=== PATIENT | female | born 1965 | race Caucasian/White ===

== ENCOUNTER 2018-07-20 08:36 | Emergency (ER) | payer OTHER ==
[2018-07-20] MEDS ORDERED: NORMAL SALINE 1000 ML 1,000 ML IV ONE (09:25)
[2018-07-20 09:49] LABS: ABSOLUTE LYMPHOCYTES (AUTO) 1.1 10^3/uL (0.5-4.7); ABSOLUTE MONOCYTES (AUTO) 0.7 10^3/uL (0.1-1.4); ABSOLUTE NEUT (AUTO) 7.5 10^3/uL (1.7-8.2); BASOPHILS % (AUTO) 0.4 % (0-2); EOSINOPHILS % (AUTO) 0.5 % (0-6); HEMATOCRIT 40.9 % (36.0-47.0); HEMOGLOBIN 14.1 g/dL (12.0-15.5); LYMPHOCYTES % (AUTO) 11.8 % (13-45); MEAN CORPUSCULAR HEMOGLOBIN 29.2 pg (27.0-33.4); MEAN CORPUSCULAR HGB CONC 34.4 g/dL (32.0-36.0); MEAN CORPUSCULAR VOLUME 85 fl (80-97); MONOCYTES % (AUTO) 7.3 % (3-13); PLATELET COUNT 269 10^3/uL (150-450); RED BLOOD COUNT 4.81 10^6/uL (3.72-5.28); RED CELL DISTRIBUTION WIDTH 13.8 % (11.5-14.0); TOTAL CELLS COUNTED % (AUTO) 100 %; WHITE BLOOD COUNT 9.3 10^3/uL (4.0-10.5)
[2018-07-20 10:08] LABS: ALANINE AMINOTRANSFERASE 29 U/L (9-52); ALBUMIN 4.6 g/dL (3.5-5.0); ALKALINE PHOSPHATASE 67 U/L (38-126); ANION GAP 16 (5-19); ASPARTATE AMINO TRANSFERASE 26 U/L (14-36); BILIRUBIN,DIRECT 0.4 mg/dL (0.0-0.4); BILIRUBIN,TOTAL 0.8 mg/dL (0.2-1.3); BLOOD UREA NITROGEN 8 mg/dL (7-20); CALCIUM 9.8 mg/dL (8.4-10.2); CARBON DIOXIDE 27 mmol/L (22-30); CHLORIDE 93 mmol/L (98-107); GLUCOSE 144 mg/dL (75-110); SODIUM 136.4 mmol/L (137-145); TOTAL PROTEIN 7.5 g/dL (6.3-8.2)
[2018-07-20] MEDS ORDERED: MAGNESIUM SULFATE/D5W 1 GM/100 ML RTUPB IV ONE (10:24)
[2018-07-20] MEDS ORDERED: POTASSI CL 20 MEQ/50 ML RIDER 20 MEQ/50 ML RTUPB IV SCH (10:30)
[2018-07-20] MEDS ORDERED: POTASSI CL 20 MEQ/50 ML RIDER 20 MEQ/50 ML RTUPB IV ONE (10:33)
[2018-07-20] MEDS ORDERED: POTASSIUM CHLORIDE 20 MEQ/15 ML UDCUP PO ONE (10:33)
[2018-07-20] MEDS ORDERED: FAMOTIDINE INJ/PF 20 MG/2 ML SDV IV ONE (10:33)
--- NOTE | 2018-07-20 12:50 | Progress Note ---
Provider Note Provider Note: Patient was scheduled for an EGD and colonoscopy today. she went to ED with concerns about her potassium. I was made aware that patient was in ED by Dr Dodge who is in charge of Anesthesia today. I was told that her potassium was low, Dr Dodge stated that patient will be having an EKG and that he is checking her labs and that it would be replaced. A little after that, Dr Dodge informed me that patient had expressed the fact that she did not want to proceed with her procedures due to her significant anxiety; the decision was then made to cancel her procedure.. will see the patient as an outpatient, but I do suspect that this same scenario will be repeated at the next attempt.
--- NOTE | 2018-07-20 13:24 | ER Document Report ---
ED General - General Chief Complaint: Anxiety Stated Complaint: ANXIETY Time Seen by Provider: 07/20/18 09:34 Primary Care Provider: DALE EDWARD [Primary Care Provider] - Follow up as needed TRAVEL OUTSIDE OF THE [place] IN LAST 30 DAYS: No - HPI Patient complains to provider of: Anxiety cramping Notes: Patient was scheduled for a colonoscopy EGD earlier this morning patient states she has been performed the prep however woke up this morning very anxious also having some cramping in her hands. Patient states she had a small amount of vomiting early this morning patient states she did complete the entire prep. Patient otherwise is resting comfortably upon my evaluation. Patient states she was recently started on potassium supplements as that her doctor performed lab work showing a potassium of 2. Patient states she states 10 mEq a day however has not taken those in the last 3 days. Patient was to be no obvious distress - Related Data Allergies/Adverse Reactions: aspirin Allergy (Severe, Verified 07/20/18 08:40) Hemorrhage montelukast [From Singulair] Allergy (Severe, Verified 07/20/18 08:40) valsartan [From Diovan] Allergy (Severe, Verified 07/20/18 08:40) levofloxacin [From Levaquin] Allergy (Intermediate, Verified 07/20/18 08:40) VOMITING paroxetine [From Paxil] Allergy (Intermediate, Verified 07/20/18 08:40) Hallucinations COSTUME JEWELRY METAL Allergy (Uncoded 07/20/18 08:40) Past Medical History - Social History Smoking Status: Never Smoker Family History: Reviewed & Not Pertinent Patient has suicidal ideation: No Patient has homicidal ideation: No - Past Medical History Cardiac Medical History: Reports: Hx Hypertension Denies: Hx Coronary Artery Disease, Hx Heart Attack Pulmonary Medical History: Reports: Hx Asthma - ALLERGEN Denies: Hx Bronchitis, Hx COPD, Hx Pneumonia Neurological Medical History: Denies: Hx Cerebrovascular Accident, Hx Seizures Renal/ Medical History: Denies: Hx Peritoneal Dialysis Musculoskeletal Medical History: Denies Hx Arthritis - Immunizations Hx Diphtheria, Pertussis, Tetanus Vaccination: Yes - NOT UP TO DATE Review of Systems - Review of Systems Constitutional: No symptoms reported EENT: No symptoms reported Cardiovascular: No symptoms reported Respiratory: No symptoms reported Gastrointestinal: No symptoms reported Genitourinary: No symptoms reported Female Genitourinary: No symptoms reported Musculoskeletal: No symptoms reported Skin: No symptoms reported Hematologic/Lymphatic: No symptoms reported Neurological/Psychological: Anxiety, Other - Cramping -: Yes All other systems reviewed and negative Physical Exam - Vital signs Vitals: Temp Pulse Resp BP Pulse Ox 97.7 F 158 H 16 140/72 H 100 07/20/18 08:43 07/20/18 08:43 07/20/18 08:43 07/20/18 08:43 07/20/18 08:43 Interpretation: Normal - General General appearance: Appears well, Alert - HEENT Head: Normocephalic, Atraumatic Eyes: Normal Pupils: PERRL - Respiratory Respiratory status: No respiratory distress Chest status: Nontender Breath sounds: Normal Chest palpation: Normal - Cardiovascular Rhythm: Regular Heart sounds: Normal auscultation Murmur: No - Abdominal Inspection: Normal Distension: No distension Bowel sounds: Normal Tenderness: Nontender Organomegaly: No organomegaly - Back Back: Normal, Nontender - Extremities General upper extremity: Normal inspection, Nontender, Normal color, Normal ROM, Normal temperature General lower extremity: Normal inspection, Nontender, Normal color, Normal ROM, Normal temperature, Normal weight bearing. No: Luis's sign - Neurological Neuro grossly intact: Yes Cognition: Normal Orientation: AAOx4 Wisdom Coma Scale Eye Opening: Spontaneous Wisdom Coma Scale Verbal: Oriented Hazel Coma Scale Motor: Obeys Commands Hazel Coma Scale Total: 15 Speech: Normal Motor strength normal: LUE, RUE, LLE, RLE Sensory: Normal - Psychological Associated symptoms: Normal affect, Normal mood - Skin Skin Temperature: Warm Skin Moisture: Dry Skin Color: Normal Course - Re-evaluation Re-evalutation: 07/20/18 15:24 Laboratory studies show a low potassium of 3 and a magnesium of 1.4. Patient was given oral potassium and intravenous magnesium as that we were notified by the GI and anesthesia team the patient would not be undergoing her EGD or colonoscopy today because these a little abnormalities. At the replacement patient feeling a symptomatic patient was encouraged to continue her home medications we will add mag to her medication regiment for repletion patient discharged home - Vital Signs Vital signs: Temp Pulse Resp BP Pulse Ox 98.2 F 76 16 136/74 H 100 07/20/18 13:37 07/20/18 13:37 07/20/18 13:37 07/20/18 13:37 07/20/18 13:37 - Laboratory Result Diagrams: 07/20/18 09:28 07/20/18 09:28 Laboratory results interpreted by me: 07/20/18 07/20/18 07/20/18 09:28 09:28 09:28 Seg Neutrophils % 80.0 H Lymphocytes % 11.8 L Sodium 136.4 L Potassium 3.0 L* Chloride 93 L Est GFR (Non-Af Amer) 58 L Glucose 144 H Magnesium 1.2 L* Discharge - Discharge Clinical Impression: Hypokalemia, Hypomagnesemia Condition: Good Disposition: HOME, SELF-CARE Instructions: Anxiety ([facility]), Hypokalemia ([facility]) Additional Instructions: Your evaluation today shows low potassium and low magnesium exam tabs as prescribed please continue with your potassium replacement tablets as previous prescribed by your physician follow-up with your GI specialist return to the ER symptoms worsen. Prescriptions: Magnesium Oxide [Mag-Ox 400 mg Tablet] 400 mg PO DAILY #30 tablet Forms: Parent Work Note, Return to School Referrals: DALE EDWARD [Primary Care Provider] - Follow up as needed
[2018-07-20 13:39] VITALS: BP 136/74
--- NOTE | 2018-07-20 22:55 | EKG REPORT ---
SEVERITY:- BORDERLINE ECG - SINUS RHYTHM BORDERLINE LEFT AXIS DEVIATION BORDERLINE T ABNORMALITIES, ANTERIOR LEADS : Confirmed by: Rosalee Thompson MD 20-Jul-2018 22:54:57
== END 2018-07-20 13:39 | disposition home or self-care (01) ==
LOC: ER 08:36
DX: E87.6 Hypokalemia (principal); E83.42 Hypomagnesemia; F41.9 Anxiety disorder, unspecified; I10 Essential (primary) hypertension; J45.909 Unspecified asthma, uncomplicated
CPT/HCPCS: 93005; 36415; 83735; 85025; 80053; 93010; J3475; J3480; J7030; S0028; 96361; 96365; 96375; 99284

== ENCOUNTER 2018-08-26 21:07 | Emergency (ER) | payer OTHER ==
[2018-08-26 21:32] LABS: APPEARANCE,URINE CLEAR; BILIRUBIN,URINE NEGATIVE (NEGATIVE); COLOR,URINE COLORLESS; GLUCOSE, URINE NEGATIVE (NEGATIVE); KETONES,URINE NEGATIVE (NEGATIVE); LEUKOCYTE ESTERASE,URINE NEGATIVE (NEGATIVE); NITRITE,URINE NEGATIVE (NEGATIVE); PROTEIN,URINE NEGATIVE (NEGATIVE); URINE SPECIFIC GRAVITY 1.003; UROBILINOGEN,URINE NEGATIVE mg/dL (<2.0)
[2018-08-26 22:52] LABS: ANION GAP 9 (5-19); BLOOD UREA NITROGEN 13 mg/dL (7-20); CALCIUM 9.9 mg/dL (8.4-10.2); CARBON DIOXIDE 28 mmol/L (22-30); CHLORIDE 106 mmol/L (98-107); GLUCOSE 108 mg/dL (75-110); POTASSIUM 3.8 mmol/L (3.6-5.0); SODIUM 142.9 mmol/L (137-145)
--- NOTE | 2018-08-27 00:42 | ER Document Report ---
ED General - General Chief Complaint: Other Stated Complaint: ABNORMAL LABS Time Seen by Provider: 08/26/18 21:59 Primary Care Provider: BLAS NOLASCO NP [Primary Care Provider] - Follow up in 3-5 days Cannot obtain history due to: Other - Very poor historian Notes: Patient is a 53-year-old female with a past medical history of essential hypertension, presents with a multitude of complaints. It is difficult to ascertain what exactly is bringing the patient to the emergency department rajinder salomon. As I sit in the room the patient continues to add additional complaints that were not initially presented to nursing staff. Initially the patient was complaining to me primarily of urinating frequently throughout the day today. She denies any associated dysuria, abdominal pain, flank pain, hematuria or burning. She states only that she is concerned that she is peeing so often. Nothing seems to improve or worsen the symptom. Denies anything similar in the past. The patient then speaks at length about her history of low potassium and low magnesium earlier this month. For several minutes thereafter she tells me about the various types of potassium and magnesium that she has tried taking in conjunction with her primary care doctor. She then tells me that she is concerned about bilateral lower extremity edema but then notes that this has also gone away. She also tells me that she has felt fatigued, has had some intermittent headaches, states that she is very concerned about her potassium and magnesium levels. She also relates that she has a history of significant anxiety, has a long-standing history of multiple medicine allergies, tells me that she drove to the hospital several weeks ago and sat in the parking lot for an hour after taking her first dose of buspirone "because I was sure I can have an allergic reaction but I guess I did not". Patient is unable to identify exactly what made her come to the emergency department [place]. She has not discussed her concerns with her primary care doctor today. TRAVEL OUTSIDE OF THE [place] IN LAST 30 DAYS: No - Related Data Allergies/Adverse Reactions: aspirin Allergy (Severe, Verified 07/20/18 08:40) Hemorrhage montelukast [From Singulair] Allergy (Severe, Verified 07/20/18 08:40) valsartan [From Diovan] Allergy (Severe, Verified 07/20/18 08:40) levofloxacin [From Levaquin] Allergy (Intermediate, Verified 07/20/18 08:40) VOMITING paroxetine [From Paxil] Allergy (Intermediate, Verified 07/20/18 08:40) Hallucinations COSTUME JEWELRY METAL Allergy (Uncoded 07/20/18 08:40) Past Medical History - General Information source: Patient - Social History Smoking Status: Never Smoker Frequency of alcohol use: None Drug Abuse: None Lives with: Spouse/Significant other Family History: Reviewed & Not Pertinent Patient has suicidal ideation: No Patient has homicidal ideation: No - Past Medical History Cardiac Medical History: Reports: Hx Hypertension Denies: Hx Coronary Artery Disease, Hx Heart Attack Pulmonary Medical History: Reports: Hx Asthma - ALLERGEN Denies: Hx Bronchitis, Hx COPD, Hx Pneumonia Neurological Medical History: Denies: Hx Cerebrovascular Accident, Hx Seizures Renal/ Medical History: Denies: Hx Peritoneal Dialysis Musculoskeletal Medical History: Denies Hx Arthritis - Immunizations Hx Diphtheria, Pertussis, Tetanus Vaccination: Yes - NOT UP TO DATE Review of Systems - Review of Systems Notes: Constitutional: Negative for fever. HENT: Negative for sore throat. Eyes: Negative for visual changes. Cardiovascular: Negative for chest pain. Respiratory: Negative for shortness of breath. Gastrointestinal: Negative for abdominal pain, vomiting or diarrhea. Genitourinary: Negative for dysuria. Musculoskeletal: Positive for leg swelling Skin: Negative for rash. Neurological: Negative for headaches, weakness or numbness. 10 point ROS negative except as marked above and in HPI. Physical Exam - Vital signs Vitals: Temp Pulse Resp BP Pulse Ox 97.7 F 69 16 188/97 H 99 08/26/18 21:29 08/26/18 21:29 08/26/18 21:29 08/26/18 21:29 08/26/18 21:29 Interpretation: Hypertensive Notes: PHYSICAL EXAMINATION: GENERAL: Well-appearing, well-nourished and in no acute distress. HEAD: Atraumatic, normocephalic. EYES: Pupils equal round and reactive to light, extraocular movements intact, sclera anicteric, conjunctiva are normal. ENT: nares patent, oropharynx clear without exudates. Moist mucous membranes. NECK: Normal range of motion, supple without lymphadenopathy LUNGS: Breath sounds clear to auscultation bilaterally and equal. No wheezes rales or rhonchi. HEART: Regular rate and rhythm without murmurs ABDOMEN: Soft, nontender, normoactive bowel sounds. No guarding, no rebound. No masses appreciated. EXTREMITIES: Normal range of motion, no pitting or edema. No cyanosis. NEUROLOGICAL: No focal neurological deficits. Moves all extremities spontaneous ly and on command. PSYCH: Normal mood, normal affect. SKIN: Warm, Dry, normal turgor, no rashes or lesions noted. Course - Re-evaluation Re-evalutation: 08/27/18 00:42 Patient presents with multiple vague complaints that did not appear to be concerning for any acute life-threatening pathology. Vitals are within normal limits at triage and at time of discharge. Physical examination is unremarkable. Patient has tolerated oral intake without difficulty. Patient was not noted to be in distress at any point during their ER visit. At this time, based on the reassuring evaluation, I do not suspect an acute RI, pulmonary embolus, aortic dissection, acute intra-abdominal pathology, stroke, or sepsis.Will discharge with return precautions and follow-up recommendations. Verbal discharge instructions given a the bedside and opportunity for questions given. Medication warnings reviewed. Patient is in agreement with this plan and has verbalized understanding of return precautions and the need for primary care follow-up in the next 24-72 hours. - Vital Signs Vital signs: Temp Pulse Resp BP Pulse Ox 98.7 F 68 19 171/92 H 97 08/27/18 00:47 08/26/18 22:00 08/27/18 00:09 08/27/18 00:09 08/27/18 00:09 - Laboratory Result Diagrams: 08/26/18 22:25 Discharge - Discharge Clinical Impression: Essential hypertension, Multiple complaints Condition: Stable Disposition: HOME, SELF-CARE Additional Instructions: Please return to the emergency room immediately if you experience any concerning symptoms including high fevers, severe headache, chest pain, difficulty breathing, abdominal pain, slurred speech, numbness or weakness in your arms or legs, or any other symptom that concerns you. Referrals: BLAS NOLASCO NP [Primary Care Provider] - Follow up in 3-5 days
[2018-08-27 00:47] VITALS: BP 171/92
== END 2018-08-27 00:47 | disposition home or self-care (01) ==
LOC: ER 21:07
DX: R35.0 Frequency of micturition (principal); I10 Essential (primary) hypertension; R53.83 Other fatigue; R51 Headache; M79.89 Other specified soft tissue disorders; J45.909 Unspecified asthma, uncomplicated; Z88.6 Allergy status to analgesic agent; Z88.8 Allergy status to other drugs, medicaments and biological substances; Z88.1 Allergy status to other antibiotic agents; Z91.048 Other nonmedicinal substance allergy status
CPT/HCPCS: 36415; 80048; 81001; 83735; 99283

== ENCOUNTER 2018-09-01 01:05 | Emergency (ER) | payer OTHER ==
--- NOTE | 2018-09-01 03:39 | ER Document Report ---
ED General - General Chief Complaint: Blood Pressure Problem Stated Complaint: BLOOD PRESSURE PROBLEMS Time Seen by Provider: 09/01/18 02:50 Primary Care Provider: BLAS NOLASCO NP [Primary Care Provider] - Follow up as needed Notes: Patient is a 53-year old female with a past medical history of essential hypertension, anxiety, pressure. Patient states that she brought a blood pressure cuff today, checked her blood pressure every 2 hours for the past 10 hours, found her readings to be high and became concerned coming to the emergency department. Denies any associated symptoms. Has been taking her blood pressure medications as prescribed. Nothing seemed to improve or worsen her blood pressure although she notes more she took a higher got. Does note associated anxiety. Denies any chest pain, shortness of breath or palpitations. Has a long-standing history of hypertension. TRAVEL OUTSIDE OF THE [place] IN LAST 30 DAYS: No - Related Data Allergies/Adverse Reactions: aspirin Allergy (Severe, Verified 07/20/18 08:40) Hemorrhage montelukast [From Singulair] Allergy (Severe, Verified 07/20/18 08:40) valsartan [From Diovan] Allergy (Severe, Verified 07/20/18 08:40) levofloxacin [From Levaquin] Allergy (Intermediate, Verified 07/20/18 08:40) VOMITING paroxetine [From Paxil] Allergy (Intermediate, Verified 07/20/18 08:40) Hallucinations COSTUME JEWELRY METAL Allergy (Uncoded 07/20/18 08:40) Past Medical History - General Information source: Patient - Social History Smoking Status: Never Smoker Frequency of alcohol use: None Drug Abuse: None Lives with: Spouse/Significant other Family History: Reviewed & Not Pertinent - Past Medical History Cardiac Medical History: Reports: Hx Hypertension Denies: Hx Coronary Artery Disease, Hx Heart Attack Pulmonary Medical History: Reports: Hx Asthma - ALLERGEN Denies: Hx Bronchitis, Hx COPD, Hx Pneumonia Neurological Medical History: Denies: Hx Cerebrovascular Accident, Hx Seizures Renal/ Medical History: Denies: Hx Peritoneal Dialysis Musculoskeletal Medical History: Denies Hx Arthritis - Immunizations Hx Diphtheria, Pertussis, Tetanus Vaccination: Yes - NOT UP TO DATE Review of Systems - Review of Systems Notes: Constitutional: Negative for fever. HENT: Negative for sore throat. Eyes: Negative for visual changes. Cardiovascular: Negative for chest pain. Respiratory: Negative for shortness of breath. Gastrointestinal: Negative for abdominal pain, vomiting or diarrhea. Genitourinary: Negative for dysuria. Musculoskeletal: Negative for back pain. Skin: Negative for rash. Neurological: Negative for headaches, weakness or numbness. 10 point ROS negative except as marked above and in HPI. Physical Exam - Vital signs Vitals: Temp Pulse Resp BP Pulse Ox 98.2 F 73 18 159/94 H 99 09/01/18 01:18 09/01/18 01:18 09/01/18 01:18 09/01/18 01:18 09/01/18 01:18 Interpretation: Normal Notes: PHYSICAL EXAMINATION: GENERAL: Well-appearing, well-nourished and in no acute distress. HEAD: Atraumatic, normocephalic. EYES: Pupils equal round and reactive to light, extraocular movements intact, sclera anicteric, conjunctiva are normal. ENT: nares patent, oropharynx clear without exudates. Moist mucous membranes. NECK: Normal range of motion, supple without lymphadenopathy LUNGS: Breath sounds clear to auscultation bilaterally and equal. No wheezes rales or rhonchi. HEART: Regular rate and rhythm without murmurs ABDOMEN: Soft, nontender, normoactive bowel sounds. No guarding, no rebound. No masses appreciated. EXTREMITIES: Normal range of motion, no pitting or edema. No cyanosis. NEUROLOGICAL: No focal neurological deficits. Moves all extremities spontaneously and on command. PSYCH: Normal mood, normal affect. SKIN: Warm, Dry, normal turgor, no rashes or lesions noted. Course - Re-evaluation Re-evalutation: 09/01/18 03:30 Presentation of asymptomatic hypertension. Patient denies any symptoms concerning for SAH, dissection, AR, or encephalopaty. Alert, oriented, and denies any symptoms at time of assessment. Normal neuro exam. Per ACEP policy guidelines, will therefore not obtain any labs or EKG at this time and will not initiate new BP treatment. I have discussed critical importance of follow up with PCP within 1 week and increased risk of devastating stroke, heart attack, respiratory distress, and other life threatening complications if blood pressure is not reduced appropriately. Diet and exercise habits also discussed. Patient will be discharged with return precautions and follow-up recommendations. - Vital Signs Vital signs: Temp Pulse Resp BP Pulse Ox 98.2 F 66 18 188/89 H 99 09/01/18 01:18 09/01/18 02:37 09/01/18 01:18 09/01/18 02:37 09/01/18 01:18 Discharge - Discharge Clinical Impression: Essential hypertension Condition: Good Disposition: HOME, SELF-CARE Additional Instructions: You were seen today for blood pressure that was high. This is a long-term risk factor for multiple medical problems including heart attack and stroke. However, the blood pressure in of itself will not cause you to have an acute stroke or heart attack over the course of just several days or weeks. You need to have a gradual reduction of your blood pressure back to normal levels over the next several months in conjunction with your primary care physician. Return if you develop headache, weakness, numbness, chest pain, pass out, or have any other symptoms that are concerning to you. Referrals: BLAS NOLASCO NP [Primary Care Provider] - Follow up as needed
[2018-09-01 04:13] VITALS: BP 154/90
== END 2018-09-01 04:14 | disposition home or self-care (01) ==
LOC: ER 01:05
DX: I10 Essential (primary) hypertension (principal); Z79.899 Other long term (current) drug therapy; F41.9 Anxiety disorder, unspecified; J45.909 Unspecified asthma, uncomplicated; Z88.6 Allergy status to analgesic agent; Z88.8 Allergy status to other drugs, medicaments and biological substances; Z88.1 Allergy status to other antibiotic agents; Z91.048 Other nonmedicinal substance allergy status
CPT/HCPCS: 99283

== ENCOUNTER → 2018-09-20 | Outpatient (CLI) | payer OTHER ==
[2018-09-20 09:57] LABS: CHOLESTEROL 177.52 mg/dL (0-200); TRIGLYCERIDES 151 mg/dL (<150)
[2018-09-20 10:08] LABS: DIRECT LDL 78 mg/dL (<100)
[2018-09-20 10:11] LABS: VLDL CHOLESTEROL 30.2 mg/dL (10-31)
== END ==
LOC: OD 08:04
PROVIDERS: ATTEND Physician Assistant
DX: Z13.6 Encounter for screening for cardiovascular disorders (principal)
CPT/HCPCS: 36415; 80061

== ENCOUNTER → 2018-10-04 | Outpatient (CLI) | payer OTHER | LOC: OD 11:58 | PROVIDERS: ATTEND Otolaryngology | DX: J30.9 Allergic rhinitis, unspecified (principal) | CPT/HCPCS: 36415; 82785; 86003 ==

== ENCOUNTER → 2019-04-16 | Outpatient (CLI) | payer OTHER ==
--- NOTE | 2019-04-17 07:25 | WOMENS IMAGING REPORT ---
EXAM DESCRIPTION: BILAT SCREENING MAMMO W/CAD COMPLETED DATE/TIME: 04/16/2019 3:21 pm REASON FOR STUDY: Z12.31 SCREENING MAMMO Z12.31 ENCNTR SCREEN MAMMOGRAM FOR MALIGNANT NEOPLASM OF B RE COMPARISON: None. EXAM PARAMETERS: Standard craniocaudal and mediolateral oblique views of each breast recorded using digital acquisition. Read with the assistance of CAD. .[facility] - [employer] Director Version 9.2 LIMITATIONS: None. FINDINGS: No suspicious masses, suspicious calcifications or architectural distortion. No areas of c oncern. IMPRESSION: Negative MAMMOGRAM. BIRADS 1 BREAST DENSITY: a. The breasts are almost entirely fatty. BIRAD: ASSESSMENT: 1 NEGATIVE RECOMMENDATION: ROUTINE SCREENING Please continue yearly bilateral screening mammography/tomosynthesis in March 2020 COMMENT: The patient has been notified of the results by letter per MQSA requirements. Additional no tification policies are in place for contacting patient with suspicious or incomplete findings. Quality ID #225: The [employer] recommends an annual screening mammogram for women aged 40 years or over. This facility utilizes a reminder system to ensure that all patients receive reminder letters, and/or direct phone calls for appointments. This includes reminders for routine scr eening mammograms, diagnostic mammograms, or other Breast Imaging Interventions when appropriate. Th is patient will be placed in the appropriate reminder system. TECHNICAL DOCUMENTATION: FINDING NUMBER: (1) ASSESSMENT: (1) JOB ID: [id number] [employer]- All Rights Reserved Reading location - IP/workstation name: [email or web address]
== END ==
LOC: WI 14:45
PROVIDERS: ATTEND Physician Assistant
DX: Z12.31 Encounter for screening mammogram for malignant neoplasm of breast (principal)
CPT/HCPCS: 77067

== ENCOUNTER → 2020-06-24 | Outpatient (CLI) | payer OTHER ==
--- NOTE | 2020-06-24 15:08 | WOMENS IMAGING REPORT ---
EXAM DESCRIPTION: 3D SCREENING MAMMO BILAT IMAGES COMPLETED DATE/TIME: 06/24/2020 2:16 pm REASON FOR STUDY: ROUTINE SCREENING MAMMOGRAM Z12.31 Z12.31 ENCNTR SCREEN MAMMOGRAM FOR MALIGNANT N EOPLASM OF SERGE COMPARISON: 2019 EXAM PARAMETERS: Views: Standard craniocaudal and mediolateral oblique views of each breast recorded using digital acquisition and breast tomosynthesis. Read with the assistance of CAD. .[facility] - [employer] Version 9.2 LIMITATIONS: None. FINDINGS: No suspicious masses, suspicious calcifications or architectural distortion. No areas of c oncern. IMPRESSION: NEGATIVE MAMMOGRAM. BIRADS 1. BREAST DENSITY: b. There are scattered areas of fibroglandular density. BIRAD: ASSESSMENT: 1 NEGATIVE RECOMMENDATION: ROUTINE SCREENING COMMENT: The patient has been notified of the results by letter per MQSA requirements. Additional no tification policies are in place for contacting patient with suspicious or incomplete findings. Quality ID #225: The [employer] recommends an annual screening mammogram for women aged 40 years or over. This facility utilizes a reminder system to ensure that all patients receive reminder letters, and/or direct phone calls for appointments. This includes reminders for routine scr eening mammograms, diagnostic mammograms, or other Breast Imaging Interventions when appropriate. Th is patient will be placed in the appropriate reminder system. TECHNICAL DOCUMENTATION: FINDING NUMBER: (1) ASSESSMENT: (1) JOB ID: [id number] 2010 [employer]- All Rights Reserved Reading location - IP/workstation name: [email or web address]
== END ==
LOC: WI 14:31
PROVIDERS: ATTEND Physician Assistant
DX: Z12.31 Encounter for screening mammogram for malignant neoplasm of breast (principal)
CPT/HCPCS: 77063; 77067